=== PATIENT | female | born 1975 | race Caucasian/White ===

== ENCOUNTER 2021-12-08 17:08 | Emergency (ER) | payer OTHER, SELFPAY ==
--- NOTE | 2021-12-08 17:08 | ED.HEATRA ---
HPI - Head Injury General Chief complaint: Wound/Laceration Stated complaint: Laceration on Head Time Seen by Provider: 12/08/21 17:08 Source: patient Mode of arrival: ambulatory Limitations: no limitations History of Present Illness HPI Narrative: Ms. Walters is a 46-year-old female patient presenting to the clinic today with complaints of a slipping on a rock while [place] the [place] and falling and hitting the back of her head. She denies any loss of consciousness or dizziness. Does have a goose egg on the back of her head with a it being laceration measuring approximately 2.5 cm. States that this occurred approximately 3 hours ago. Tetanus unknown Related Data Home Medications Medication Instructions Recorded Confirmed albuterol sulfate 90 mcg/actuation 2 inh inhalation DIRECTED 12/08/21 12/08/21 aerosol inhaler amitriptyline 25 mg tablet 25 mg PO DIRECTED 12/08/21 12/08/21 betamethasone dipropionate 0.05 % 1 applic topical DAILY 12/08/21 12/08/21 topical cream clobetasol 0.05 % topical ointment 0.05 g topical DAILY 12/08/21 12/08/21 dextroamphetamine-amphetamine ER 30 mg PO DAILY 12/08/21 12/08/21 30 mg 24hr capsule,extend release lamotrigine 25 mg tablet 25 mg PO DIRECTED 12/08/21 12/08/21 pantoprazole 40 mg tablet,delayed 40 mg PO DAILY 12/08/21 12/08/21 release tiotropium 2.5 mcg-olodaterol 2.5 1 inh inhalation DIRECTED 12/08/21 12/08/21 mcg/actuation mist for inhalation (Stiolto Respimat) Allergies Allergy/AdvReac Type Severity Reaction Status Date / Time No Known Allergies Allergy Verified 12/08/21 17:27 Review of Systems Review of Systems: Pertinent positives per HPI. Patient denies any fever, chills, rash, headache, visual changes, dizziness, cough, runny nose, sore throat, shortness of breath, chest pain, palpitations, nausea, vomiting, diarrhea, constipation, abdominal pain, or any urinary issues. PMFSH Comments At the time of my signature, I reviewed and agree with the nursing past medical, surgical, social, and family history. There is no relevant family history pertinent to the patient complaint. Exam Narrative: General: Well-developed, well nourished, in no apparent distress Head: Normocephalic, atraumatic. Cardio: Regular rate and rhythm, s1 and s2 normal, no murmur appreciated. Resp: Clear to auscultation bilaterally, no rhonchi, rales, wheezing or rubs. Integumentary: [place], warm, and dry, 6 cm laceration to the back of the scalp. Bleeding controlled Course Course Emergency Course: Portions of this record may have been created with voice recognition software. Level of Care: Express Care Visit Vital Signs Vital signs: Vital signs reviewed Procedures Laceration Laceration 1: Date: 12/08/21 Site: scalp Size (cm): 6 Description: linear Depth: simple, single layer Pre-repair: wound explored and irrigated ====== Skin Level ====== Skin layer closed with: alka Number of sutures: 7 Technique: simple, interrupted ====== Subcutaneous Layer ====== ====== Muscle Layer ====== ====== Tendon Layer ====== Dressing: Verbal consent obtained for laceration repair. Risk and benefits explained and patient voiced understanding. Area was cleansed with Techni care and 7 alka were placed to bring the wound edges together-well approximated. Patient tolerated procedure well. Triple antibiotic ointment applied. MDM - Head Injury MDM Narrative Medical decision making narrative: At the time of visit patient is resting comfortably on the exam table. 7 alka placed to close scalp wound. Patient declined tetanus. Closed head injury instructions reviewed with the patient she voiced understanding of discharge instructions and agrees to treatment plan. Differential Diagnosis Differential diagnosis: Likely concussion without loss of consciousness, closed head injury and other (Scalp lacera
[2021-12-08 17:20] VITALS: BP 146/111; PULSE 107; RESP 18; TEMP 36.9; O2SAT 99
== END 2021-12-08 17:44 | disposition home or self-care (01) ==
PROVIDERS: Emergency Provider Nurse Practitioner Family; PCP Family Medicine
DX: S01.01XA Laceration without foreign body of scalp, initial encounter (principal); W19.XXXA Unspecified fall, initial encounter; S09.90XA Unspecified injury of head, initial encounter
CPT/HCPCS: 12004; 99212; G0463

== ENCOUNTER 2024-04-01 15:41 | Emergency (ER) | payer OTHER, SELFPAY ==
--- NOTE | ~2024-04-01 | XR_ITS ---
XR chest 1V portable Ordering provider: Davie Herrera MD History: 48 years Female with . PICC LINE inserted prior to arrival. placement confirmation . Comparison: None. FINDINGS: MEDIASTINUM: The cardiac silhouette is slightly enlarged. Congestive claudia. No definite PICC line seen. LUNGS: No infiltrates, effusions or pneumothorax. Interstitial changes in the left lung suggestive of pneumonitis. OTHER: No free air under the diaphragm. IMPRESSION: Interstitial changes in the left lung which may indicate pneumonitis. Clinical correlation advised. P ulmonary edema is not excluded. Reviewed, dictated and finalized at location A. OR [employer]OPER IMPRESSION: Interstitial changes in the left lung which may indicate pneumonitis. Clinical correlation advised. Pulmonary edema is not excluded.
[2024-04-01 15:42] VITALS: BP 91/76; PULSE 110; RESP 20; TEMP 36.4; O2SAT 95
--- NOTE | 2024-04-01 16:42 | ED.GENADULT ---
HPI - General Adult General Chief complaint: Urogenital-Female Stated complaint: UTUI History of Present Illness HPI narrative: 48-year-old female present to the emergency department for evaluation for increased urinary symptoms over the last few days, patient states she does suspect that she has a urinary tract infection. Patient reports that she has had longstanding issues with urinary retention and does have a Alfonso catheter in place. Patient presented emergency department for evaluation for urinary pain. Related Data Home Medications Medication Instructions Recorded Confirmed albuterol sulfate 90 mcg/actuation 2 inh inhalation DIRECTED 12/08/21 12/08/21 aerosol inhaler amitriptyline 25 mg tablet 25 mg PO DIRECTED 12/08/21 12/08/21 betamethasone dipropionate 0.05 % 1 applic topical DAILY 12/08/21 12/08/21 topical cream clobetasol 0.05 % topical ointment 0.05 g topical DAILY 12/08/21 12/08/21 dextroamphetamine-amphetamine ER 30 mg PO DAILY 12/08/21 12/08/21 30 mg 24hr capsule,extend release lamotrigine 25 mg tablet 25 mg PO DIRECTED 12/08/21 12/08/21 pantoprazole 40 mg tablet,delayed 40 mg PO DAILY 12/08/21 12/08/21 release tiotropium 2.5 mcg-olodaterol 2.5 1 inh inhalation DIRECTED 12/08/21 12/08/21 mcg/actuation mist for inhalation (Stiolto Respimat) Allergies Allergy/AdvReac Type Severity Reaction Status Date / Time No Known Allergies Allergy Verified 12/08/21 17:27 Review of Systems Review of Systems: All systems reviewed & are unremarkable except as noted in HPI and below Exam Narrative: APPEARANCE: Uncomfortable appearing HEAD: normocephalic, atraumatic. EYES: PERRLA/EOMI, conjunctivae clear. NOSE: Normal no drainage EARS:TMS clear with good light reflex. THROAT: Pharynx clear, no exudate. NECK: Supple. No adenopathy, no masses. RESPIRATORY: Airway patent, respirations nonlabored. Clear to auscultation bilaterally, no rales, rhonchi, wheezing. CARDIOVASCULAR: Regular rate and rhythm without murmurs rubs or gallops. ABDOMINAL: Soft, nontender, nondistended, normal bowel sounds MUSCULOSKELETAL: Moves all extremities. Strength/ROM intact, No edema, No calf tenderness. NEURO: Alert. Cranial nerves II through XII intact. Good gait. Good coordination SKIN: Warm, dry. Normal Color Course Vital Signs Vital signs: Vital Signs Temperature 97.6 F 04/01/24 15:42 Pulse Rate 110 H 04/01/24 15:42 Respiratory Rate 20 04/01/24 15:42 Blood Pressure 91/76 L 04/01/24 15:42 Pulse Oximetry 95 04/01/24 15:42 Oxygen Delivery Room Air 04/01/24 15:42 Temperature 97.6 F 04/01/24 15:42 Pulse Rate 100 04/01/24 19:03 Respiratory Rate 20 04/01/24 19:03 Blood Pressure 117/88 04/01/24 19:03 Pulse Oximetry 95 04/01/24 19:03 Oxygen Delivery Room Air 04/01/24 15:42 Medical Decision Making MDM Narrative Medical decision making narrative: 48-year-old female presents emergency department for evaluation for urinary symptoms. Patient states the last time she had her Alfonso catheter change was approximately 2 months ago. Urine was concerning for UTI. Alfonso catheter was exchanged. Patient was started on Rocephin in the emergency department and started on Keflex for home. Patient was comfortable plan for discharge and close follow-up. Differential Diagnosis Differential Diagnosis: UTI, catheter issue Vital Signs Vital Signs: Vital Signs Temperature 97.6 F 04/01/24 15:42 Pulse Rate 110 H 04/01/24 15:42 Respiratory Rate 20 04/01/24 15:42 Blood Pressure 91/76 L 04/01/24 15:42 Pulse Oximetry 95 04/01/24 15:42 Oxygen Delivery Room Air 04/01/24 15:42 Temperature 97.6 F 04/01/24 15:42 Pulse Rate 100 04/01/24 19:03 Respiratory Rate 20 04/01/24 19:03 Blood Pressure 117/88 04/01/24 19:03 Pulse Oximetry 95 04/01/24 19:03 Oxygen Delivery Room Air 04/01/24 15:42 Lab Data Lab results reviewed: Yes I reviewed the patient's lab results. 04/01/24 16:20 04/01/24 16:20 Labs: Lab Results 04/01/24 04/01/24 Range/Units 16:20 16:21 WBC 13.3 H (4.5-10.0) K/mm3 RBC 4.62 (4.2-5.4) M/mm3 Hgb 13.5 (12.0-15.0) g/dL Hct 44.3 (37.0-47.0) % MCV 95.9 (80-100) fl MCH 29.2 (26-34) pg MCHC 30.5 L (32-36) g/dl RDW 17.2 H (11.5-14.5) % Plt Count 400 H (150-375) k/mm3 MPV 10.8 H (7.4-10.4) fl Immature Gran % (Auto) 0.5 (0-0.5) % Neut % (Auto) 69.0 (45.5-73.1) % Lymph % (Auto) 18.8 (18.3-44.2) % [place] % (Auto) 7.9 (2.6-8.5) % Eos % (Auto) 2.9 (0-4.4) % Baso % (Auto) 0.9 (0.2-1.2) % Lymph # (Auto) 2.50 (0.9-3.2) K/mm3 [place] # (Auto) 1.1 H (0.1-0.6) K/mm3 Eos # (Auto) 0.4 H (0-0.3) K/mm3 Baso # (Auto) 0.1 (0.0-0.1) K/mm3 Abs Immat Gran (auto) 0.06 H (0.00-0.031) K/mm3 Absolute Neuts (auto) 9.2 H (1.3-6.7) K/mm3 Absolute Nucleated RBC 0.000 (0.0-0.012) K/mm3 Nucleated RBC % 0.0 (0.0-0.2) % Sodium 144 (137-145) mmol/L Potassium 2.8 L* (3.4-5.0) mmol/L Chloride 103 (98-107) mmol/L Carbon Dioxide 37 H (22-30) mmol/L Anion Gap 4 (4-12) mmol/L BUN 14 (7-17) mg/dL Creatinine 0.60 L (0.7-1.0) mg/dL Estim Creat Clear Calc 138 ml/min Estimated GFR > 60 (59 - ) Glucose 119 H (65-110) mg/dL Calcium 8.6 (8.4-10.2) mg/dL Total Bilirubin 1.5 H (0.2-1.3) mg/dL AST 54 H (14-36) U/L ALT 43 H (6-35) U/L Alkaline Phosphatase 130 H (38-126) U/L Total Protein 7.0 (6.3-8.2) g/dL Albumin 3.2 L (3.5-5.1) g/dL Urine Color Yellow (Yellow) Urine Appearance Turbid H (Clear) Urine pH 5.5 (5.0-9.0) Ur Specific [place] 1.012 (1.001-1.035) Urine Protein 1+ H (Negative) mg/dL Urine Glucose (UA) Negative (Negative) mg/dL Urine Ketones Negative (Negative) mg/dL Ur Blood (Man) 3+ H (Negative) Urine Nitrate Negative (Negative) Urine Bilirubin Negative (Negative) Urine Urobilinogen 1.0 (<2.0) mg/dL Leukocyte Esterase Rfl 2+ H (Negative) ZULAY/UL Urine RBC 51-100 H (0-2) /hpf Urine WBC 21-50 H (0-3) /hpf Ur Squamous Epith Cells Occasional (Few) /hpf Amorphous Sediment Few H (None) Urine Bacteria None seen /hpf Urine Casts 6-10 Discharge Plan Discharge Clinical Impression: Urinary tract infection, Hypokalemia Patient Disposition: Home, Self-Care Condition: Stable Instructions: Antibiotic Form, Urinary Tract Infection in Women (ED) Additional Instructions: Antibiotic as directed until completed. Have close follow-up with your primary care physician for a recheck of your urine and of your potassium. If you have any worsening symptoms then please call or return to the emergency department. Prescriptions: New cephalexin 500 mg capsule 500 mg PO Q6H 7 Days Qty: 28 0RF No Action lamotrigine 25 mg tablet 25 mg PO DIRECTED amitriptyline 25 mg tablet 25 mg PO DIRECTED pantoprazole 40 mg tablet,delayed release (DR/EC) 40 mg PO DAILY betamethasone dipropionate 0.05 % cream 1 applic TOPICAL DAILY clobetasol 0.05 % ointment 0.05 g TOPICAL DAILY albuterol sulfate 90 mcg/actuation HFA aerosol inhaler 2 inh INHALATION DIRECTED dextroamphetamine-amphetamine 30 mg capsule,extended release 24hr 30 mg PO DAILY Stiolto Respimat 2.5-2.5 mcg/actuation mist 1 inh INHALATION DIRECTED Follow-up/Referrals: Russel,Florencio Rees MD [Primary Care Provider] -
[2024-04-01 16:51] LABS: Add Urine Microscopic? YES; Appearance Urine Turbid (Clear); Bacteria Urine None Seen /hpf; Bilirubin Urine Negative (Negative); Blood Urine 3+ (Negative); Color Urine Yellow (Yellow); Glucose Urine UA Negative (Negative); Ketones Urine Negative (Negative); Leukocyte Esterase Ur 2+ LEU/UL (Negative); Nitrate Urine Negative (Negative); Protein Urine 1+ mg/dL (Negative); RBC Urine 51-100 /hpf (0-2); Specific Grav Ur 1.012 (1.001-1.035); Squamous Epithelial Cell Urine Occasional /hpf (Few); WBC Urine 21-50 /hpf (0-3); pH Urine 5.5 (5.0-9.0)
[2024-04-01 16:56] LABS: Amorphous Sediment Urine Few
[2024-04-01 17:52] LABS: Basophils Absolute Auto 0.1 K/mm3 (0.0-0.1); Basophils Percent Auto 0.9 % (0.2-1.2); Eosinophils Absolute Auto 0.4 K/mm3 (0-0.3); Eosinophils Percent Auto 2.9 % (0-4.4); Hematocrit 44.3 % (37.0-47.0); Hemoglobin 13.5 g/dL (12.0-15.0); Immature Granulocyte Absolute 0.06 K/mm3 (0.00-0.031); Immature Granulocyte Percent A 0.5 % (0-0.5); Lymphocytes Percent Auto 18.8 % (18.3-44.2); Mean Corpuscular HGB Conc 30.5 g/dl (32-36); Mean Corpuscular Hemoglobin 29.2 pg (26-34); Mean Corpuscular Volume 95.9 fl (80-100); Mean Platelet Volume 10.8 fl (7.4-10.4); Monocytes Absolute Auto 1.1 K/mm3 (0.1-0.6); Monocytes Percent Auto 7.9 % (2.6-8.5); Neutrophils Absolute Auto 9.2 K/mm3 (1.3-6.7); Platelet Count Result 400 k/mm3 (150-375); Red Blood Count 4.62 M/mm3 (4.2-5.4); Red Cell Distribution Width 17.2 % (11.5-14.5); White Blood Count 13.3 K/mm3 (4.5-10.0)
[2024-04-01 18:08] LABS: Alanine Aminotransferase 43 U/L (6-35); Albumin Level 3.2 g/dL (3.5-5.1); Alkaline Phosphatase 130 U/L (38-126); Anion Gap 4 mmol/L (4-12); Aspartate Amino Transferase 54 U/L (14-36); Bilirubin,Total 1.5 mg/dL (0.2-1.3); Blood Urea Nitrogen 14 mg/dL (7-17); Calcium 8.6 mg/dL (8.4-10.2); Carbon Dioxide 37 mmol/L (22-30); Chloride 103 mmol/L (98-107); Estimated CRCL calculation 138 ml/min; Estimated Glomerular Filt Rate > 60; Glucose 119 mg/dL (65-110); Potassium 2.8 mmol/L (3.4-5.0); Sodium 144 mmol/L (137-145)
[2024-04-01 19:03] VITALS: BP 117/88; PULSE 100; RESP 20; O2SAT 95
[2024-04-01] MEDS: PHENAZOPYRIDINE HCL 100 MG TABLET 200 MG PO (19:05)
[2024-04-01] MEDS: POTASSIUM CHLORIDE 20 MEQ PACKET (FOR LIQUID) 40 MEQ PO (19:05)
== END 2024-04-01 19:31 | disposition home or self-care (01) ==
PROVIDERS: Emergency Provider Emergency Medicine; PCP Family Medicine
DX: N39.0 Urinary tract infection, site not specified (principal); E87.6 Hypokalemia
CPT/HCPCS: 36415; 51702; 71045; 80053; 81001; 85025; 87077; 87086; 87186; 96365; 99284; A9270; J0696